=== PATIENT | male | born 2000 | race Two or more races ===

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

== ENCOUNTER 2019-04-07 08:55 | Emergency (ER) | payer OTHER ==
[~2019-04-07] VITALS: Ht 175.3 cm; Wt 129.3 kg
[~2019-04-07 08:55] MED LIST changes: +CLARITIN-D 121 EAC1 ORAL; +GUAIFENESIN1200 MG PO; +TYLENOL EXTRA500 MG ORAL
[2019-04-07] MEDS ORDERED: NKM (09:02)
[2019-04-07 09:09] VITALS: BP 126/86
--- NOTE | 2019-04-07 09:10 | NUR ---
ED Nurse Note:pt. got bitten by rat at the attic, has small wound on left 4th finger
[2019-04-07] MEDS ORDERED: PENICILLIN V P500 MG PO (09:16)
--- NOTE | 2019-04-07 09:16 | Emergency Room Report ---
History of Present Illness General Chief Complaint: Animal Bite Source: Patient Present Illness HPI 18-year-old male, history of asthma presents with rat bite to the left ring finger on the ulnar aspect, no fevers no chills he stated it bled a little bit, he endorses a mild pain achy in nature no aggravating relieving factors severity is mild no fevers chills numbness or tingling patient presents for evaluation. Allergies: Coded Allergies: No Known Allergies (Unverified , 12/19/13) Patient History Past Medical History: see triage record Reviewed Nursing Documentation: PMH: Agreed; PSxH: Agreed Nursing Documentation-PMH Past Medical History: No History, Except For Hx Asthma: Yes Review of Systems All Other Systems: negative except mentioned in HPI Physical Exam Vital Signs Date Time Temp Pulse Resp B/P (MAP) Pulse Ox O2 Delivery O2 Flow Rate FiO2 04/07/19 08:59 97.9 84 20 126/86 (99) 97 Room Air General Appearance: well appearing, no apparent distress Head: normocephalic, atraumatic ENT: hearing grossly normal, normal voice Neck: full range of motion, supple Respiratory: no respiratory distress, speaking full sentences Musculoskeletal: other - Left upper extremity: Bite to the left ulnar aspect of the left ring finger, no pus no drainage no discharge, no erythema Neurologic: alert, normal gait Psychiatric: mood/affect normal Skin: no rash Medical Decision Making Diagnostic Impression: Primary Impression: Bite by animal ER Course Patient with bite, no evidence of infection. TDAP up to date per patient Will provide patient with antibiotics. Dispo home w/ return precautions Last Vital Signs Date Time Temp Pulse Resp B/P (MAP) Pulse Ox O2 Delivery O2 Flow Rate FiO2 04/07/19 08:59 97.9 84 20 126/86 (99) 97 Room Air Disposition: HOME, SELF-CARE Condition: Stable Scripts Penicillin V Potassium* (PENVK*) 500 Mg Tablet 500 MG PO Q6H, #56 TAB 0 Refills Prov: Mark Monique MD 04/07/19 Referrals: [facility] Patient Instructions: Animal Bite Additional Instructions: The patient was provided with discharge instructions, notified to follow-up with a primary care doctor and or specialist in the next 24-48 hours, and to return to the ED if they have worsening of their symptoms. Please note that this report is being documented using [employer] technology. This can lead to erroneous entry secondary to incorrect interpretation by the dictating instrument. Mark Monique MD Apr 07, 2019 09:16
[2019-04-07 09:22] VITALS: BP 126/86
--- NOTE | 2019-04-07 09:23 | NUR ---
ER DISCHARGE NOTE: Patient is cleared to be discharged per ERMD, pt is aox4, on room air, with stable vital signs. pt was given dc and prescription instructions, pt was able to verbalize understanding, pt is able to ambulate with steady gait. pt took all belongings.
== END 2019-04-07 10:00 | disposition home or self-care (01) ==
LOC: EMR 09:15
DX: S61.255A Open bite of left ring finger without damage to nail, initial encounter (principal); W53.11XA Bitten by rat, initial encounter; Y92.9 Unspecified place or not applicable
CPT/HCPCS: 99282